=== PATIENT | male | born 1960 | race American Indian/Alaskan Native ===

== ENCOUNTER 2021-10-02 20:04 | Emergency (ER) | payer SELFPAY ==
--- NOTE | 2021-10-02 21:34 | XRay Report ---
CHEST 2 VIEWS INDICATION / CLINICAL INFORMATION: cough. COMPARISON: None available. FINDINGS: SUPPORT DEVICES: None. HEART / MEDIASTINUM: No significant abnormality. LUNGS / PLEURA: No acute pulmonary or pleural findings. Lungs are mildly hyperexpanded. No pneumothor ax. ADDITIONAL FINDINGS: No significant additional findings. IMPRESSION: 1. No acute findings. Signer Name: Dexter Azevedo MD Signed: 10/02/2021 9:30 PM Workstation Name: [id number]
--- NOTE | 2021-10-03 07:58 | Emergency Department Report ---
ED ENT HPI - General Chief complaint: Upper Respiratory Infection Stated complaint: COPD,COUGHING Time Seen by Provider: 10/03/21 07:53 Source: patient Mode of arrival: Ambulatory Limitations: No Limitations - History of Present Illness Initial comments: 60-year-old black male with a past medical history of COPD presents to the emergency department for evaluation of 1 month history of cough. He states that he has been coughing intermittently for months for the last few days cough seems to be worse. He denies fever, but states that he does have some intermittent shortness of breath. He denies chest pain, nausea, vomiting, dizziness, and diaphoresis. MD complaint: other (Cough) -: Gradual, month(s) (2) Severity scale (0 -10): 0 Associated Symptoms: cough. denies: fever, gum swelling, toothache, pain with swallowing, sore throat, discharge from ear, rhinorrhea - Related Data Previous Rx's Medication Instructions Recorded Last Taken Type Benzonatate [Tessalon Perles] 100 mg PO Q8HR PRN #21 cap 10/03/21 Unknown Rx Prednisone [predniSONE 10 mg 10 mg PO .TAPER #1 pack 10/03/21 Unknown Rx (6-Day Pack, 21 Tabs)] guaiFENesin/CODEINE [Robitussin AC] 10 ml PO TID PRN #120 ml 10/03/21 Unknown Rx Allergies Allergy/AdvReac Type Severity Reaction Status Date / Time No Known Allergies Allergy Verified 10/02/21 20:55 ED Dental HPI - General Chief complaint: Upper Respiratory Infection Stated complaint: COPD,COUGHING Time Seen by Provider: 10/03/21 07:53 Source: patient Mode of arrival: Ambulatory Limitations: No Limitations - Related Data Previous Rx's Medication Instructions Recorded Last Taken Type Benzonatate [Tessalon Perles] 100 mg PO Q8HR PRN #21 cap 10/03/21 Unknown Rx Prednisone [predniSONE 10 mg 10 mg PO .TAPER #1 pack 10/03/21 Unknown Rx (6-Day Pack, 21 Tabs)] guaiFENesin/CODEINE [Robitussin AC] 10 ml PO TID PRN #120 ml 10/03/21 Unknown Rx Allergies Allergy/AdvReac Type Severity Reaction Status Date / Time No Known Allergies Allergy Verified 10/02/21 20:55 ED Review of Systems ROS: Stated complaint: COPD,COUGHING Other details as noted in HPI Comment: All other systems reviewed and negative Constitutional: denies: chills, fever Eyes: denies: eye discharge, vision change ENT: congestion Respiratory: cough, shortness of breath. denies: SOB with exertion, wheezing Cardiovascular: denies: chest pain, palpitations Gastrointestinal: denies: abdominal pain, nausea, vomiting Genitourinary: denies: urgency, dysuria Musculoskeletal: denies: back pain Neurological: denies: headache, weakness ED Past Medical Hx - Past Medical History Previous Medical History?: Yes Hx COPD: Yes - Surgical History Past Surgical History?: Yes Additional Surgical History: appendectomy - Social History Smoking Status: Never Smoker Substance Use Type: None - Medications Home Medications: Home Medications Medication Instructions Recorded Confirmed Last Taken Type Benzonatate [Tessalon Perles] 100 mg PO Q8HR PRN #21 cap 10/03/21 Unknown Rx Prednisone [predniSONE 10 mg 10 mg PO .TAPER #1 pack 10/03/21 Unknown Rx (6-Day Pack, 21 Tabs)] guaiFENesin/CODEINE [Robitussin AC] 10 ml PO TID PRN #120 ml 10/03/21 Unknown Rx ED Physical Exam - General Limitations: No Limitations General appearance: alert, in no apparent distress - Head Head exam: Present: atraumatic, normocephalic - Eye Eye exam: Present: normal appearance. Absent: conjunctival injection, periorbital swelling, periorbital tenderness - ENT ENT exam: Absent: normal exam (Bilateral nasal mucosal edema), normal orophraynx (Erythema noted to posterior oropharynx) - Neck Neck exam: Present: normal inspection, full ROM. Absent: tenderness, lymphadenopathy - Respiratory Respiratory exam: Present: normal lung sounds bilaterally. Absent: respiratory distress, wheezes, rales, rhonchi, stridor, chest wall tenderness - Cardiovascular Cardiovascular Exam: Present: regular rate, normal heart sounds - GI/Abdominal GI/Abdominal exam: Present: soft, normal bowel sounds. Absent: distended, tenderness, guarding, rebound, rigid - Back Exam Back exam: Present: normal inspection. Absent: CVA tenderness (R), CVA ten derness (L), vertebral tenderness - Neurological Exam Neurological exam: Present: alert, oriented X3, CN II-XII intact, normal gait - Psychiatric Psychiatric exam: Present: normal affect, normal mood - Skin Skin exam: Present: warm, dry, intact, normal color ED Course Vital Signs 10/02/21 20:53 Temperature 98.3 F Pulse Rate 69 Respiratory 18 Rate Blood Pressure 152/83 [Left] O2 Sat by Pulse 98 Oximetry ED Medical Decision Making - Radiology Data Radiology results: report reviewed, image reviewed Chest x-ray: FINDINGS: SUPPORT DEVICES: None. HEART / MEDIASTINUM: No significant abnormality. LUNGS / PLEURA: No acute pulmonary or pleural findings. Lungs are mildly hyperexpanded. No pneumothorax. ADDITIONAL FINDINGS: No significant additional findings. IMPRESSION: 1. No acute findings. - Medical Decision Making 60-year-old black male with a past medical history of COPD presents to the emergency department for evaluation of 1 month history of cough. He states that he has been coughing intermittently for months for the last few days cough seems to be worse. He denies fever, but states that he does have some intermittent shortness of breath. He denies chest pain, nausea, vomiting, dizziness, and diaphoresis. Physical exam unremarkable. Chest x-ray without any acute abnormalities noted. Patient will be discharged home with steroid pack, Tessalon Perles, and Robitussin-AC to use as directed. He is advised to follow-up with his primary care provider if no improvement or worsening symptoms. He verbalizes understanding of and agreement with plan of care. Critical care attestation.: If time is entered above; I have spent that time in minutes in the direct care of this critically ill patient, excluding procedure time. ED Disposition Clinical Impression: URI with cough and congestion Disposition: 01 HOME / SELF CARE / HOMELESS Is pt being admited?: No Does the pt Need Aspirin: No Condition: Stable Instructions: Upper Respiratory Infection, Adult, E[place]-bo-Alcr Additional Instructions: Take medications as prescribed. Follow-up with primary care provider if no improvement or worsening symptoms. Return to the emergency department as needed. Prescriptions: Prednisone [predniSONE 10 mg (6-Day Pack, 21 Tabs)] 10 mg PO .TAPER #1 pack guaiFENesin/CODEINE [Robitussin AC] 10 ml PO TID PRN #120 ml PRN Reason: Cough Benzonatate [Tessalon Perles] 100 mg PO Q8HR PRN #21 cap PRN Reason: Cough Referrals: JAVIER BRO MD [Primary Care Provider] - 3-5 Days Forms: Work/School Release Form(ED) Time of Disposition: 07:58
[2021-10-03 08:05] VITALS: BP 142/87
== END 2021-10-03 08:05 | disposition home or self-care (01) ==
LOC: ED 20:04
DX: J06.9 Acute upper respiratory infection, unspecified (principal); Z79.899 Other long term (current) drug therapy
CPT/HCPCS: 71046; 99283